=== PATIENT | female | born 1990 | race African-American/Black ===

== ENCOUNTER 2017-05-07 19:58 | Emergency (ER) | payer SELFPAY ==
[~2017-05-07] VITALS: Ht 167.6 cm; Wt 93.4 kg
[~2017-05-07 19:58] MED LIST: NAPR500T8 PO; OXYC-323 PO; PREN1TAB58 PO
--- NOTE | 2017-05-07 20:20 | PHYS DOC ---
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 Patient has no other complaints at this time. Patient denies any fevers shakes chills nausea vomiting diarrhea chest pain shortness of breath cough cold or rhinorrhea. Patient denies any headache or double vision. Patient denies any blurred vision. Patient was transferred from the [facility]. Patient denies any history of hypertension diabetes liver longer kidney problems. Patient denies any alcohol or drug use. Patient reports she did have a approximately one year ago. Patient denies any sexual activity for over a year. Review of systems: Constitutional: Denies fever or chills Eyes: Denies change in visual acuity, redness, or eye pain HENT: Denies nasal congestion or sore throat All the other review systems are negative except as documented in the history of present illness portion. Physical exam: Constitutional: Well developed, well nourished, no acute distress, non-toxic appearance. HENT: Normocephalic, atraumatic, bilateral external ears normal, nose normal. Eyes:EOMI, conjunctiva normal, no discharge. Patient with intermittent episodes of staring off and having right superior gaze. However patient is able to be easily distracted and is able to stare off straight. Patient's $maneuvers reveals she is able to have full motion of her eyes both left and right laterally and inferiorly and superiorly. Patient does not appear to have any disconjugate gaze. Neck: Normal range of motion, no tenderness, supple, no stridor. Cardiovascular:Heart rate regular rhythm, Lungs & Thorax: Bilateral breath sounds clear to auscultation Abdomen: Bowel sounds normal, soft, no tenderness, no masses, no pulsatile masses. Skin: Warm, dry, no erythema, no rash. Back: No tenderness, no CVA tenderness. Extremities: No tenderness, no cyanosis, no clubbing, ROM intact, no edema. Neurologic: Alert and oriented X 3, normal motor function, normal sensory function, no focal deficits noted. Psychologic: Affect flat affect Patient's ER physical exam is unremarkable. Patient does not exhibit any signs or symptoms of be consistent with an acute focal neurological issue. Patient's symptoms are not consistent with a dystonic reaction. Patient is alert awake and oriented 3. Patient's eye doctor motions are intact utilizing dolls eye maneuvers. Patient be discharged home in stable condition and is to follow-up with her primary care physician/psychiatrist for reevaluation of the symptoms persist. This appears to be more psychosomatic in nature. Allergies Allergies Allergies Coded Allergies Type Severity Reaction Last Updated Verified ziprasidone Allergy Intermediate dystonic reaction 06/13/14 Yes Current Patient Data Vital Signs Vital Signs Date Time Temp Pulse Resp B/P (MAP) Pulse Ox O2 Delivery O2 Flow Rate FiO2 05/07/17 19:58 99.1 70 18 147/90 (109) 99 Room Air 99.1 EKG EKG [] Radiology/Procedures Radiology/Procedures [] Course & Med Decision Making Course & Med Decision Making Pertinent Labs and Imaging studies reviewed. (See chart for details) [] Dragon Disclaimer Dragon Disclaimer This electronic medical record was generated, in whole or in part, using a voice recognition dictation system. Departure Departure Impression: Primary Impression: Psychosomatic factor in physical condition Additional Impression: Schizophrenia Disposition: 01 HOME, SELF-CARE Condition: IMPROVED Referrals: NARCISA VENEGAS DO (PCP) Patient Instructions: Schizophrenia Additional Instructions: You were seen and evaluated today in the ER secondary to an abnormal movement of her eyes. Your evaluation in the ER today appears to be normal. You are able to intermittently move her eyes so it is unlikely that this is a pathological condition. This appears to be rather a voluntary condition that should be controlled with rest. Problem Qualifiers DARRICK MA MD May 07, 2017 20:20
[2017-05-07] MEDS ORDERED: diphenhydrAMINE 50 MG/ML VIAL IM ONE (21:00)
[2017-05-07 22:27] VITALS: BP 149/83
== END 2017-05-07 23:05 | disposition home or self-care (01) ==
LOC: ER 19:58
DX: F45.9 Somatoform disorder, unspecified (principal); F20.9 Schizophrenia, unspecified; Z88.8 Allergy status to other drugs, medicaments and biological substances
CPT/HCPCS: 96372; 99283; J1200